=== PATIENT | female | born 1960 | race Caucasian/White ===

== ENCOUNTER 2019-01-07 06:25 | Day surgery (SDC) | payer BC ==
[2019-01-07] MEDS ORDERED: Lactated Ringers 1,000 ML IV SCH (07:15)
[2019-01-07] MEDS ORDERED: Propofol 200 MG/20 ML SDV ONE (07:31)
[2019-01-07] MEDS ORDERED: fentaNYL 100 MCG/2 ML SDV ONE (07:31)
[2019-01-07] MEDS ORDERED: Midazolam 1 MG/ML 2 ML SDV ONE (07:32)
--- NOTE | 2019-01-07 13:51 | OR ---
DATE OF PROCEDURE: 01/07/2019 SURGEON: Dany Machado MD PREOPERATIVE DIAGNOSIS: History of tubular adenoma. POSTOPERATIVE DIAGNOSES: Right-sided diverticulum, history of tubular adenoma. PROCEDURE: Colonoscopy to the cecum. ANESTHESIA: IV anesthesia with monitored anesthesia care. INDICATION: This 58-year-old white female underwent a colonoscopy 5 years ago with removal of a tubular adenoma, and she is here for a followup colonoscopy 5 years later. I counseled her for the procedure, including risks and alternatives, and she gave her informed consent to proceed. DESCRIPTION OF PROCEDURE: The patient was placed in the left lateral decubitus position. IV anesthesia was administered by the Anesthesia Service. Time-out was held. A rectal exam was performed, which was unremarkable. The flexible video Olympus colonoscope was introduced through her anus, up her rectum, out her colon all the way to the cecum. En route, in the right colon, we saw a single diverticulum. There was no bleeding or inflammation associated with it. Once the cecum was reached, the scope was slowly withdrawn, examining the mucosa throughout. No additional mucosal abnormalities were noted. The prep was good. The scope was retroflexed in the rectum with the distal rectum appearing unremarkable. The scope was straightened and removed. She tolerated the procedure well. Dany Machado MD /[id number]
== END 2019-01-07 09:45 | disposition home or self-care (01) ==
LOC: JP.SDS 06:25
PROVIDERS: ATTEND Surgery
DX: Z12.11 Encounter for screening for malignant neoplasm of colon (principal); K57.30 Diverticulosis of large intestine without perforation or abscess without bleeding; Z86.010 Personal history of colon polyps
CPT/HCPCS: 45378; J2250; J2704; J3010; J7120